=== PATIENT | female | born 2000 | race Caucasian/White ===

== ENCOUNTER 2021-07-02 15:30 | Inpatient (IN) ==
[2021-07-02] MEDS ORDERED: Naloxone 0.4 MG/ML INJ IVP PRN (15:46)
[2021-07-02] MEDS ORDERED: *HR* Nalbuphine 10 MG/ML AMPUL IV PRN (15:46)
[2021-07-02] MEDS ORDERED: Famotidine 20 MG/2 ML VIAL IVP PRN (15:46)
[2021-07-02] MEDS ORDERED: miSOPROStoL 25 MCG TABLET PO PRN (15:46)
[2021-07-02] MEDS ORDERED: Lidocaine 1% 20 ML MDV INFILT PRN (15:46)
[2021-07-02] MEDS ORDERED: Metoclopramide 10 MG/2 ML VIAL IVP PRN (15:46)
[2021-07-02] MEDS ORDERED: Ondansetron 4 MG/2 ML VIAL IVP PRN (15:46)
[2021-07-02] MEDS ORDERED: Azithromycin 500 MG in 0.9 % Sodium Chloride 250 ML IVPB PRN (15:46)
[2021-07-02] MEDS ORDERED: Ringers Solution, Lactated 1,000 ML IVC SCH (16:00)
[2021-07-02] MEDS ORDERED: Oxytocin 20 units/ LR 1000 mL 20 UNIT/1,000 ML BAG IVC SCH (16:00)
[2021-07-02 17:08] LABS: Basophils # 0.1 K/mcL (0.0-0.2); Basophils % 0.3 %; Eosinophils # 0.1 K/mcL (0.0-0.6); Eosinophils % 0.6 %; Hematocrit 35.6 % (35.3-44.9); Hemoglobin 11.6 g/dL (11.5-15.4); Immature Granulocytes % 0.6 % (0-4); Lymphocytes # 2.2 K/mcL (0.6-4.6); Lymphocytes % 13.1 %; Mean Corpuscular HGB Conc 32.6 g/dL (31.6-35.5); Mean Corpuscular Hemoglobin 27.5 pg (28.0-33.3); Mean Corpuscular Volume 84.4 fL (83.0-100.0); Mean Platelet Volume 10.6 fL (9.4-12.4); Monocytes # 1.3 K/mcL (0.0-1.3); Monocytes % 7.8 %; Neutrophils # 12.7 K/mcL (1.6-8.9); Platelet Count 399 K/mcL (140-400); Red Blood Count 4.22 M/mcL (3.82-4.97); Red Cell Distribution Width 13.6 % (11.5-14.5); Segmented Neutrophils % 77.6 %; White Blood Count 16.4 K/mcL (4.3-11.1)
[2021-07-02 17:54] LABS: Influenza A PCR Negative (Negative); Influenza B PCR Negative (Negative); Resp. Syncytial Virus PCR Negative (Negative)
[2021-07-02 18:05] LABS: SARS-CoV-2 by PCR (In House) Positive (Negative)
[2021-07-02 20:37] LABS: Amphetamine Screen,Urine Negative ng/mL (Cutoff=1000); Barbiturate Screen,Urine Negative ng/mL (Cutoff=200); Benzodiazepines Screen,Urine Negative ng/mL (Cutoff=200); Cannabinoid Screen,Urine Negative ng/mL (Cutoff = 50); Cocaine Screen,Urine Negative ng/mL (Cutoff= 300); Opiate Screen,Urine Negative ng/mL (Cutoff=300); Phencyclidine Screen,Urine Negative ng/mL (Cutoff=25)
[2021-07-03] MEDS ORDERED: EPHEDrine 50 MG/ML VIAL IVP PRN (00:09)
[2021-07-03] MEDS ORDERED: Epidural Premix (fent/bupiv) 110 ML EP SCH (00:15)
[2021-07-03] MEDS ORDERED: Ibuprofen 600 MG TABLET PO ONE (09:00)
[2021-07-03] MEDS ORDERED: Prenatal Vit/FA 1 EACH TABLET PO SCH (11:15)
[2021-07-03] MEDS ORDERED: Benzocaine/Menthol 56 GM AEROSOL SPRAY TP PRN (11:15)
[2021-07-03] MEDS ORDERED: Acetaminophen 325 MG TABLET PO PRN (11:15)
[2021-07-03] MEDS ORDERED: Lanolin 7 G OINT...G. TP PRN (11:15)
[2021-07-03] MEDS ORDERED: Ibuprofen 600 MG TABLET PO PRN (11:15)
[2021-07-03] MEDS ORDERED: Oxytocin 20 units/ LR 1000 mL 20 UNIT/1,000 ML BAG IVC SCH (11:15)
[2021-07-03 20:40] VITALS: BP 128/79; PULSE 68; TEMP 99.3; O2SAT 99
== END 2021-07-03 23:20 | disposition home or self-care (01) | DRG 560 ==
LOC: 1NENULAB → 1NENUOBS 07-03 10:55
PROVIDERS: ADMIT Advanced Practice Midwife; ATTEND Advanced Practice Midwife